=== PATIENT | female | born 1960 | race Caucasian/White ===

== ENCOUNTER 2020-05-21 13:46 | Outpatient (REF) | payer BC, SELFPAY ==
[2020-05-21 16:45] LABS: Glucose Urine UA NEG (NEG); Leukocyte Esterase Urine NEG (NEG); Nitrite Urine NEG (NEG); Urine Blood NEG (NEG); Urine Ketones NEG (NEG); Urine Protein NEG (NEG-TRACE)
[2020-05-21 16:46] LABS: Appearance Urine CLEAR; Color Urine STRAW
== END 2020-05-21 13:47 | disposition home or self-care (01) ==
LOC: HO.HMGCLDS 13:46
PROVIDERS: PCP Internal Medicine; Visit Provider Internal Medicine
DX: Z00.00 Encounter for general adult medical examination without abnormal findings (principal)
CPT/HCPCS: 81003

== ENCOUNTER 2021-07-25 10:59 | Outpatient (REF) | payer BC, SELFPAY ==
--- NOTE | ~2021-07-25 | XR_ITS ---
EXAMINATION: XR KNEE, RIGHT CLINICAL INFORMATION: Sprain of medial collateral ligament COMPARISON: None TECHNIQUE: Four views of the right knee. FINDINGS: Bones and soft tissues are normal. No fracture or joint effusion. Alignment is anatomic. Joint spaces are well maintained. No abnormal soft tissue calcification. XR/XR knee RT 3V IMPRESSION: Normal right knee.
== END 2021-07-25 11:00 | disposition home or self-care (01) ==
LOC: HO.HMGCX 10:59
PROVIDERS: Visit Provider Physician Assistant
DX: S83.411A Sprain of medial collateral ligament of right knee, initial encounter (principal); X58.XXXA Exposure to other specified factors, initial encounter; Y93.9 Activity, unspecified; Y92.9 Unspecified place or not applicable; Y99.9 Unspecified external cause status
CPT/HCPCS: 73562

== ENCOUNTER 2021-10-10 07:27 | Outpatient (REF) | payer BC, SELFPAY ==
[2021-10-10 11:26] LABS: Appearance Urine CLEAR; Color Urine YELLOW; Glucose Urine UA NEG (NEG); Leukocyte Esterase Urine TRACE (NEG); Nitrite Urine NEG (NEG); PH 6.5 (5.0-8.0); Urine Blood NEG (NEG); Urine Ketones NEG (NEG); Urine Protein NEG (NEG-TRACE)
[2021-10-10 11:30] LABS: Hemoglobin 12.8 g/dl (12.0-16.0); Mean Corpuscular HGB Conc 33.7 g/dl (31.0-35.0); Mean Corpuscular Hemoglobin 31.1 pg (27.0-33.0); Mean Corpuscular Volume 92.5 fL (80.0-98.0); PLT CLUMP 1; Red Blood Count 4.11 X10*6/uL (4.20-5.50); Red Cell Distribution Width 11.8 % (11.0-16.0)
[2021-10-10 11:54] LABS: White Blood Count 4.6 X10*3/uL (4.8-10.8)
[2021-10-10 11:55] LABS: Alanine Aminotransferase 11 U/L (0-31); Albumin Level 3.9 g/dL (3.5-5.0); Alkaline Phosphatase 68 U/L (39-117); Anion Gap 11 (12-20); Aspartate Amino Transferase 18 U/L (5-31); Bilirubin Total 0.6 mg/dL (0.0-1.0); Blood Urea Nitrogen 16 mg/dL (9-16); Calcium 9.7 mg/dL (8.4-10.2); Carbon Dioxide 28 mmol/L (22-29); Chloride 102 mmol/L (96-108); Cholesterol 199 mg/dL; Estimated Glomerular Filt Rate > 60; Glucose Fasting 80 mg/dL (60-99); HDL Cholesterol 52 mg/dL; LDL Cholesterol Calculated 128 mg/dl; Potassium 4.1 mmol/L (3.3-5.1); Sodium 137 mmol/L (135-145); Total Protein 6.8 g/dL (6.5-8.0); Triglycerides 98 mg/dL
[2021-10-10 11:56] LABS: Mucus Urine TRACE /LPF; Squamous Epithelial Cell Urine TRACE /LPF
[2021-10-10 11:57] LABS: RBC Urine 0-2 /HPF (0); Renal Epithelial Cells Urine TRACE /LPF
[2021-10-10 12:19] LABS: TSH reflex Free T4 1.36 uIU/mL (0.32-4.0)
== END 2021-10-10 07:28 | disposition home or self-care (01) ==
LOC: HO.HMGCLDS 07:27
PROVIDERS: PCP Internal Medicine; Visit Provider Internal Medicine
DX: Z00.00 Encounter for general adult medical examination without abnormal findings (principal); M81.0 Age-related osteoporosis without current pathological fracture; Z92.89 Personal history of other medical treatment
CPT/HCPCS: 36415; 80053; 80061; 81001; 82306; 84443; 85027

== ENCOUNTER 2021-11-19 11:09 | Outpatient (REF) | payer BC, SELFPAY ==
[2021-11-19 11:59] LABS: Influenza A PCR POSITIVE (Negative); Influenza B PCR NEGATIVE (Negative); Resp Syncy Virus RNA Qual PCR NEGATIVE (Negative); SARS COV2 PCR INHOUSE NEGATIVE (Negative)
== END 2021-11-19 11:10 | disposition home or self-care (01) ==
LOC: HO.LNP 11:09
PROVIDERS: Visit Provider Physician Assistant
DX: Z20.822 Contact with and (suspected) exposure to COVID-19 (principal); J06.9 Acute upper respiratory infection, unspecified
CPT/HCPCS: 0241U

== ENCOUNTER 2022-10-25 09:58 | Outpatient (REF) | payer BC, SELFPAY ==
[2022-10-25 12:47] LABS: Vitamin D 25-OH Total 26.5 ng/mL (>30)
== END 2022-10-25 09:59 | disposition home or self-care (01) ==
LOC: HO.HMGCLDS 09:58
PROVIDERS: PCP Internal Medicine; Visit Provider Internal Medicine
DX: D49.2 Neoplasm of unspecified behavior of bone, soft tissue, and skin (principal); M81.0 Age-related osteoporosis without current pathological fracture
CPT/HCPCS: 36415; 82306

== ENCOUNTER 2023-02-01 07:41 | Outpatient (REF) | payer BC, SELFPAY ==
[2023-02-01 11:48] LABS: Basophils Percent Auto 0.9 % (0-2); Eosinophils Absolute Auto 0.1 X10*3/uL (0.0-0.4); Hematocrit 38.3 % (37.0-47.0); Hemoglobin 12.6 g/dl (12.0-16.0); Imm Gran Abs Auto 0.01 X10*3/uL (0.00-0.03); Imm Gran Pct Auto 0.2 % (0.0-0.4); Lymphocytes Absolute Auto 1.5 X10*3/uL (1.2-4.9); Lymphocytes Percent Auto 32.2 % (20-40); MANUAL DIFF FLAG SCAN; Mean Corpuscular HGB Conc 32.9 g/dl (31.0-35.0); Mean Corpuscular Volume 94.1 fL (80.0-98.0); Monocytes Absolute Auto 0.4 X10*3/uL (0.1-1.2); Neutrophils Absolute Auto 2.6 x10*3/uL (2.0-8.3); Neutrophils Percent Auto 54.7 % (45-73); PLT CLUMP 1; Red Blood Count 4.07 X10*6/uL (4.20-5.50); Red Cell Distribution Width 11.8 % (11.0-16.0); SCAN SMEAR FLAG 1
[2023-02-01 12:03] LABS: White Blood Count 4.7 X10*3/uL (4.8-10.8)
[2023-02-01 12:04] LABS: SLIDE REVIEW VERIFIED
[2023-02-01 12:19] LABS: Alanine Aminotransferase 14 U/L (0-31); Alkaline Phosphatase 71 U/L (39-117); Anion Gap 12 (12-20); Aspartate Amino Transferase 20 U/L (5-31); Bilirubin Total 0.8 mg/dL (0.0-1.0); Blood Urea Nitrogen 12 mg/dL (9-16); Carbon Dioxide 26 mmol/L (22-29); Chloride 105 mmol/L (96-108); Cholesterol 184 mg/dL; Estimated Glomerular Filt Rate > 60; Glucose Fasting 84 mg/dL (60-99); HDL Cholesterol 52 mg/dL; LDL Cholesterol Calculated 116 mg/dl; Potassium 4.1 mmol/L (3.3-5.1); Sodium 139 mmol/L (135-145); Total Protein 7.2 g/dL (6.5-8.0); Triglycerides 83 mg/dL
[2023-02-01 12:24] LABS: TSH reflex Free T4 2.36 uIU/mL (0.32-4.0); Vitamin D 25-OH Total 58.5 ng/mL (>30)
[2023-02-01 12:35] LABS: Folate 14.7 ng/mL (> or = 4.0); Vitamin B12 678 pg/mL (200-900)
== END 2023-02-01 07:42 | disposition home or self-care (01) ==
LOC: HO.HMGCLDS 07:41
PROVIDERS: PCP Internal Medicine; Visit Provider Internal Medicine
DX: Z00.00 Encounter for general adult medical examination without abnormal findings (principal); M81.0 Age-related osteoporosis without current pathological fracture; Z20.2 Contact with and (suspected) exposure to infections with a predominantly sexual mode of transmission
CPT/HCPCS: 36415; 80053; 80061; 82306; 82607; 82746; 84443; 85025

== ENCOUNTER 2023-04-01 08:20 | Outpatient (AMB) | payer BC, SELFPAY ==
--- OUTSIDE RECORDS SUMMARY | 2023-04-01 08:21 | XMS_ITS | Continuity of Care Document ---
Author Name Unknown Organization [facility] Address [address] [place] [address]- Care Team Providers Care Compliance Field Technician Name Role Phone Kaykay Butcher MD Primary Care Phys[facility] [id number] Date(s): 03/15/23 - 03/22/23 [facility] [address] [place] [address]- Attending Physician: Robb CHIANG, Cydney Christensen Referring Physician: Kaykay Butcher MD Allergies, Adverse Reactions, Alerts Substance Reaction Severity Status Bactrim Rash Mild Active Medications Probiotic Formula By Mouth, Daily, 0 Refills, Maintenance, 03/15/23 10:39:00 EDT, Partial fill upon patient request if the prescription is for a schedule II opioid drug. Start Date: 03/15/23 Status: Ordered Vitamin C By Mouth, Daily, 0 Refills, Maintenance, 03/15/23 10:39:00 EDT, Partial fill upon patient request if the prescription is for a schedule II opioid drug. Start Date: 03/15/23 Status: Ordered Vitamin D3 1000 intl units oral capsule 1 capsule = 25 mcg, By Mouth, Daily, # 100 capsule, 0 Refills, Maintenance, 03/15/23 10:39:00 EDT, Capsule, Partial fill upon patient request if the prescription is for a schedule II opioid drug. Start Date: 03/15/23 Status: Ordered Vital Signs Most recent to oldest [Reference Range]: 1 Height 155.8 cm (03/15/23 10:31 AM) Weight 52.7 kg (03/15/23 10:31 AM) Body Mass Index [18.5-24.99 kg/m2] 21.71 kg/m2 (03/15/23 10:31 AM) Blood Pressure [90-138/55-84 mm Hg] 112/ 64mm Hg (03/15/23 10:31 AM) Blood pressure sites Arm, right (03/15/23 10:31 AM) Dry Weight 52.7 kg (03/15/23 10:31 AM) Weight Obtained Via Standing scale (03/15/23 10:31 AM) Dry Weight Obtained Via Standing scale (03/15/23 10:31 AM) Social History Social History Type Response Smoking Status Former smoker, quit more than 30 days ago entered on: 03/15/23 Sex Note * Robb CHIANG, Cydney F: PERFORM, SIGN, VERIFY Event Display: Patient Education/Instruction Authored Date: [id number] [facility] *[facility] Clinical Summary Name ADALBERTO RITTER Age 62 Years 1960 PCP Kaykay Butcher MD PCP Visit Date 03/15/2023 10:30:00 Additional Instructions: Shingrix vaccine advised Scheduled Appointments?? Future Appointments ?No Future Appointments Scheduled Follow-Up Instructions ?? With: Address: When: Cydney Zamudio [address] [place] [address] [address], [facility] [place] [address] [facility] ([employer] In 2 years 03/15/2025 Comments: Routine FIRST CRUSHER care. Sooner as needed. Diagnosis Encounter for gynecological examination (general) (routine) without abnormal findings; Encounter for screening for malignant neoplasm of cervix Medications: Please continue your medications until treatment is completed or stopped by your provider. Discuss any questions related to medications with your provider. Medications to Continue with No Changes These medications were not printed or sent to your pharmacy Ascorbic Acid (Vitamin C) Oral Daily. Next Dose: bifidobacterium-lactobacillus (Probiotic Formula) Oral Daily. Next Dose: Cholecalciferol (Vitamin D3 1000 intl units oral capsule) 1 capsule Oral Daily. Next Dose: Hydrochlorothiazide (hydroCHLOROthiazide 12.5 mg oral capsule) 1 capsule Oral Daily. Refills: 4. Next Dose: Allergy Info:?? Bactrim Medications Given This Visit Future Orders ?No future orders Vital Signs Height 155.8 cm Weight 52.7 kg BMI 21.71 kg/m2 Blood Pressure 112 mm Hg/64 mm Hg Temperature Pulse Rate Respiratory Rate 02 Sat Mode of Delivery / You can now view a summary of your hospital visit from the comfort of your home through a free online portal called ibeatyou. ibeatyou is a website that allows you to securely view your medical information including discharge summary, medications and follow-up visits. ??You can alsosend a secure electronic message to your doctor???s office to request appointments, renew medications or just ask a question. You can enroll at [email or web address] or register during your next office visit. Disclaimer:?? The information provided is of a general nature and is intended to be used in conjunction with the recommendations and advice of your health care practitioner. ??Every effort has been made to ensure that the information provided is accurate and complete at the time it is provided to you however, as your needs change, or, as new ??information becomes available, different or additional instructions may be required. If you have questions, please consult with your primary care provider or pharmacist, as appropriate. ??This information is not intended to serve as substitution for assessment and evaluation by a qualified health care provider. If you do not have a primary care provider, you may find a [facility] provider by calling [facility] at [phone]. For information about the plan of care including goals and instructions for your diagnosis, please see the patient education orders section of this document. Patient Education Materials?? The content of this educational material or handout may have been modified, supplemented, or adapted from its original content and format to support your individualized medical care. * Robb CHIANG, Cydney F: PERFORM, SIGN, VERIFY Event Display: Patient Education/Instruction Authored Date: [id number] [facility] *[facility] Clinical Summary Name ADALBERTO RITTER Age 62 Years 1960 PCP Kaykay Butcher MD PCP Visit Date 03/15/2023 10:30:00 Additional Instructions: Scheduled Appointments?? Future Appointments ?No Future Appointments Scheduled Follow-Up Instructions ?? With: Address: When: Cydney Zamudio [address] [facility] [address], [facility] [place] [address] Business ([employer] In 2 years 03/15/2025 Comments: Routine FIRST CRUSHER care. Sooner as needed. Diagnosis Encounter for gynecological examination (general) (routine) without abnormal findings; Encounter for screening for malignant neoplasm of cervix Medications: Please continue your medications until treatment is completed or stopped by your provider. Discuss any questions related to medications with your provider. Medications to Continue with No Changes These medications were not printed or sent to your pharmacy Ascorbic Acid (Vitamin C) Oral Daily. Next Dose: bifidobacterium-lactobacillus (Probiotic Formula) Oral Daily. Next Dose: Cholecalciferol (Vitamin D3 1000 intl units oral capsule) 1 capsule Oral Daily. Next Dose: Hydrochlorothiazide (hydroCHLOROthiazide 12.5 mg oral capsule) 1 capsule Oral Daily. Refills: 4. Next Dose: Allergy Info:?? Bactrim Medications Given This Visit Future Orders ?No future orders Vital Signs Height 155.8 cm Weight 52.7 kg BMI 21.71 kg/m2 Blood Pressure 112 mm Hg/64 mm Hg Temperature Pulse Rate Respiratory Rate 02 Sat Mode of Delivery / You can now view a summary of your hospital visit from the comfort of your home through a free online portal called ibeatyou. ibeatyou is a website that allows you to securely view your medical information including discharge summary, medications and follow-up visits. ??You can alsosend a secure electronic message to your doctor???s office to request appointments, renew medications or just ask a question. You can enroll at [email or web address] or register during your next office visit. Disclaimer:?? The information provided is of a general nature and is intended to be used in conjunction with the recommendations and advice of your health care practitioner. ??Every effort has been made to ensure that the information provided is accurate and complete at the time it is provided to you however, as your needs change, or, as new ??information becomes available, different or additional instructions may be required. If you have questions, please consult with your primary care provider or pharmacist, as appropriate. ??This information is not intended to serve as substitution for assessment and evaluation by a qualified health care provider. If you do not have a primary care provider, you may find a [facility] provider by calling [facility] at [phone]. For information about the plan of care including goals and instructions for your diagnosis, please see the patient education orders section of this document. Patient Education Materials?? The content of this educational material or handout may have been modified, supplemented, or adapted from its original content and format to support your individualized medical care. Patient Care team information Care Team Personnel Name: Kaykay Butcher MD Position: [facility] Physician - Primary Care Member Role: PCP Address: Address: [address] [place] [address]- Care Team Related Persons Name: KAREEM RITTER Address: home [facility] [place] [address]
--- OUTSIDE RECORDS SUMMARY | 2023-04-01 08:21 | XMS_ITS | Continuity of Care Document ---
Author Name Unknown Organization [facility] Address [address] [place] [address]- Care Team Providers Care Rental Agent Name Role Phone Kaykay Butcher MD [id number] Date(s): 11/04/22 - 12/04/22 [facility] [address] [place] [address]- Allergies, Adverse Reactions, Alerts No Known Allergies Medications hydroCHLOROthiazide 12.5 mg oral capsule 1 capsule = 12.5 mg, By Mouth, Daily, # 30 capsule, 4 Refills, Maintenance, 07/19/18 14:30:16 EST, Capsule Start Date: 07/19/18 Status: Ordered Patient Care team information Care Team Personnel Name: Kaykay Butcher MD Position: [facility] Physician (General Medicine) Member Role: PCP Address: Address: [address] [place] [address]- Care Team Related Persons Name: KAREEM RITTER Address: home [facility] [place] [address]
--- NOTE | 2023-04-01 09:06 | AM.OFFWIN_ITS ---
Intake Vital Signs 04/01/23 09:07 Height 5 ft 2 in Weight 115 lb BMI 21.0 BP 114/70 Blood Pressure Location Rt brachial Position Sitting Pulse 66 Pulse Source Pulse Oximeter Temp 97.5 F Temp Source Temporal Artery Scan Pulse Oximetry (%) 97 Oxygen Delivery Method Room Air Intake Visit Reasons: EP Stomach issues Intake Note: Patient here for diarrhea since last tuesday, it is not constant. no nausea, no vomiting. Shes noticed that it happens as soon as she eats and has been feeling weak lately. Patient Tobacco Use Status: Former Tobacco user Allergies Sulfa (Sulfonamide Antibiotics) Allergy (Unknown, Verified 04/01/23 09:08) rash sulfamethoxazole [From Bactrim] Allergy (Unknown, Verified 04/01/23 09:08) rash trimethoprim [From Bactrim] Allergy (Unknown, Verified 04/01/23 09:08) rash Do you need a note to return to daycare/school/sports/work: Yes HPI HPI Comments History of Present Illness Details This is a 62-year-old female who presents to the office today for sick visit. Patient complaining of persistent loose/watery diarrhea x 1.5 weeks. Patient states she started to developed watery diarrhea 1 to 4 times a day about 10 days ago. She started to developed very mild left lower quadrant abdominal pain 2-3 days ago. She denies any fevers or chills. She denies any nausea or vomiting. She has been eating a bland diet consisted of crackers, bananas, and toast. She has been drinking a lot of water. She does report feeling slightly lightheaded and weak today. She denies any recent antibiotic use. She denies any sick contacts. [facility] Medical History (Updated 10/28/22 @ 12:18 by Kakyay Butcher MD) Annual physical exam History of mammogram Hx of screening mammography Normal colonoscopy Normal Pap smear Osteoporosis Surgical History H/O colonoscopy No pertinent past surgical history Family History Father Melanoma Mother No problems noted. Brother Cancer Son Substance use disorder Daughter No problems noted. Sister No problems noted. Sister No problems noted. Sister No problems noted. Sister No problems noted. Paternal Grandfather Mental health disorder Social History Household Members Other:: , son with drug dependency Housing: House Patient Tobacco Use Status: Former Tobacco user e-Cigarette/Vaping Use: Never Used Current occupational status: employed Cognitive needs: No Hearing needs: No Vision needs: Yes Review of Systems Const All systems reviewed & are unremarkable except as noted in HPI and below Reports no additional complaints Eyes Reports no additional complaints ENT Reports no additional complaints Card Reports no additional complaints Resp Reports no additional complaints GI Reports no additional complaints Reports no additional complaints Musc Reports no additional complaints Skin/Breast Reports system reviewed and no additional complaints, except as documented Neuro Reports no additional complaints Psych Reports no additional complaints Endo Reports no additional complaints Александр/Lymph Reports no additional complaints Aller/Immun Reports no additional complaints Physical Exam Vital Signs: Last Vital Signs Temp 97.5 F 04/01/23 09:07 Pulse 66 04/01/23 09:07 BP 114/70 04/01/23 09:07 Pulse Ox 97 04/01/23 09:07 Oxygen Delivery Method Room Air 04/01/23 09:07 BMI result Body Mass Index 21.0 Const General: cooperative, healthy appearing, no acute distress and well developed Orientation/consciousness: patient oriented x3 HEENT Head: Yes normal to inspection Ears: hearing grossly normal bilaterally General nose exam: Normal external nose present Face and sinus: Yes normal facial exam Mouth: Normal oral and palatal mucosa present Eyes General: appearance normal, both eyes and all related structures Pupils: Equal, round and reactive pupils present EOM: EOMs intact bilaterally Resp Effort & Inspection: normal respiratory effort and no respiratory distress Auscultation: clear to auscultation bilaterally Cardio Rate: regular rate Rhythm: regular rhythm Heart sounds: no gallops, no murmurs and no rubs Peripheral pulses: Peripheral pulses 2+ throughout GI Inspection: No distended Palpation (GI): Soft to palpation and Tenderness to palpation present (GI) in the LLQ Auscultation: normal bowel sounds Skin General skin exam: no rashes or lesions noted Neuro General: patient oriented x3 Cranial nerves: Yes CN's II-XII intact bilaterally and Yes Equal, round and reactive pupils present Gait exam (Neuro): Normal gait present Motor exam (neuro): 5/5 motor strength present throughout Extrem General: Yes normal to inspection, Yes full ROM and Yes no clubbing, cyanosis or edema Psych Appearance: grossly normal Mental Status: mental status grossly normal Assessment & Plan Assessment & Plan (1) Acute diarrhea: Code(s): R19.7 - Diarrhea, unspecified Plan: This is a 62-year-old female presenting to the office today with persistent diarrhea times 10 days. There is concern for acute infectious diarrhea given duration of symptoms. Patient has been utilizing supportive management as an outpatient for the past 10 days without relief. Start p.o. ciprofloxacin 500 mg twice daily x5 days for treatment of presumed acute infectious diarrhea. No concern for C difficile given no recent antibiotic use. Recommended continuing symptomatic management such as a bland diet, increased hydration/electrolyte intake, and rest. Patient was also educated that there is a risk for acute diverticulitis given her left lower quadrant abdominal pain. She was informed that diverticulitis needs to be diagnosed with CT, which cannot be done at this location. Patient defers emergency room visit at this time but she was advised to follow-up with the emergency room if she has developed worsening abdominal pain, worsening diarrhea, nausea/vomiting, or fever/chills. Patient verbalizes her understanding is she is in agreement with the plan. Medications: New 2 ciprofloxacin HCl 500 mg PO BID 10 tabs 0RF Coding Level of Care Code Est Pt Level 3 (95547) Diagnoses Acute diarrhea R19.7
[2023-04-01 09:07] VITALS: BP 114/70; PULSE 66; TEMP 36.4; O2SAT 97; BMI 21.0
== END 2023-04-01 09:36 | disposition home or self-care (01) ==
PROVIDERS: PCP Internal Medicine; Visit Provider Physician Assistant Medical
DX: R19.7 Diarrhea, unspecified (principal)
CPT/HCPCS: 99213

== ENCOUNTER 2023-04-12 06:30 | Outpatient (REF) | payer BC, SELFPAY ==
[2023-04-12 12:34] LABS: CDiff Gene PCR NEGATIVE (Negative)
[2023-04-12 13:23] LABS: Adenovirus F 40/41 Not Detected (Not Detect.); Astrovirus Not Detected (Not Detect.); Campylobacter Not Detected (Not Detect.); Cryptosporidium Not Detected (Not Detect.); Cyclospora cayetanensis Not Detected (Not Detect.); E. coli EAEC Not Detected (Not Detect.); E. coli EPEC Not Detected (Not Detect.); E. coli ETEC Not Detected (Not Detect.); E. coli STEC Not Detected (Not Detect.); Entamoeba histolytica Not Detected (Not Detect.); Giardia lamblia Not Detected (Not Detect.); Norovirus GI/GII Not Detected (Not Detect.); Plesiomonas shigelloides Not Detected (Not Detect.); Rotavirus A Not Detected (Not Detect.); Salmonella Not Detected (Not Detect.); Sapovirus Not Detected (Not Detect.); Shigella sp./EIEC Not Detected (Not Detect.); Vibrio Not Detected (Not Detect.); Vibrio Cholerae Not Detected (Not Detect.); Yersinia enterocolitica Not Detected (Not Detect.)
== END 2023-04-12 06:31 | disposition home or self-care (01) ==
LOC: HO.HMGCLNP 06:30
PROVIDERS: PCP Internal Medicine; Visit Provider Nurse Practitioner Family
DX: R19.7 Diarrhea, unspecified (principal)
CPT/HCPCS: 87338; 87493; 87507

== ENCOUNTER 2023-05-18 13:45 | Outpatient (AMB) | payer BC, SELFPAY ==
[2023-05-18 13:46] VITALS: BP 116/66; PULSE 76; BMI 19.9
--- NOTE | 2023-05-18 13:46 | A.OFFVIS_ITS ---
Intake Vital Signs 05/18/23 13:46 Height 5 ft 2 in Weight 108 lb 14.534 oz BMI 19.9 BP 116/66 Blood Pressure Location Lt brachial Position Sitting Pulse 76 Intake Visit Reasons: bacterial intestinal infections Intake Note: Patient presents to in office visit today as a new patient for H pylori. CC: Patient c/o a lot of gas, bloating, feeling that she needs to go to the BR and just a little bit of loose stooll comes out. She completed a treatment for H pylori with amoxicillin, omeprazole, and clarithromycin. She also reports weight loss (10 lbs). Last colonoscopy done about a year ago and it was all normal. Allergies Sulfa (Sulfonamide Antibiotics) Allergy (Unknown, Verified 05/18/23 13:53) rash sulfamethoxazole [From Bactrim] Allergy (Unknown, Verified 05/18/23 13:53) rash trimethoprim [From Bactrim] Allergy (Unknown, Verified 05/18/23 13:53) rash Medication List - Last Reconciled 05/18/23 by Arleen Franco PA-C ascorbic acid (vitamin C) mg PO cholecalciferol (vitamin D3) 50 mcg PO DAILY HPI HPI Comments History of Present Illness Details 63-year-old female referred for colonosc opy with bacterial infection- tx cipro for 5 days-diagnosed with diverticulitis she said she did not have a CT scan-she had no abdominal imaging Sx started in March-5 days-she has abdominal pain and diarrhea Tx for HP-x 7 days Now- she has more bloating- gassy-sm stool-she is a nervous person- fatigued Saw [employer] SU[employer] STAFF- no issues Wandering abdominal pain no smoke or drink No nausea, vomiting fever triple PFSH Medical History Hx of screening mammography Annual physical exam Normal colonoscopy Normal Pap smear History of mammogram Osteoporosis Surgical History H/O colonoscopy No pertinent past surgical history Family History Father Melanoma Mother No problems noted. Brother Cancer Son Substance use disorder Daughter No problems noted. Sister No problems noted. Sister No problems noted. Sister No problems noted. Sister No problems noted. Paternal Grandfather Mental health disorder Social History Household Members Other:: , son with drug dependency Housing: House Patient Tobacco Use Status: Former Tobacco user e-Cigarette/Vaping Use: Never Used Current occupational status: employed Cognitive needs: No Hearing needs: No Vision needs: Yes Review of Systems Const All systems reviewed & are unremarkable except as noted in HPI and below Card Denies chest pain and Denies dyspnea Resp Denies dyspnea GI Reports abdominal pain and Reports bloating Physical Exam Vital Signs: Last Vital Signs Pulse 76 05/18/23 13:46 BP 116/66 05/18/23 13:46 BMI result Body Mass Index 19.9 Const General: cooperative and anxious Orientation/consciousness: patient oriented x3 Limitations: no limitations Eyes Sclerae: sclerae normal Resp Effort & Inspection: normal respiratory effort and able to speak in complete sentences Auscultation: clear to auscultation bilaterally, no rales, no rhonchi and no wheezes Cardio Rate: regular rate Rhythm: regular rhythm Heart sounds: S1 normal heart sound present and S2 normal heart sound present GI Palpation (GI): Soft to palpation and nontender Auscultation: normal bowel sounds Skin General skin exam: other (Sun tanned) Neuro General: patient oriented x3 Extrem General: Yes full ROM Psych Appearance: well kempt Speech and movement: Normal speech and movement present Affect: Anxious affect present Attitude: cooperative Thought process: Normal thought process present Thought content: Normal thought content present Assessment & Plan Assessment & Plan (1) Normal colonoscopy: Comment: 02/27 normal-the per patient report (2) H. pylori infection: Comment: txd x 7 days- Code(s): A04.8 - Other specified bacterial intestinal infections Plan: repeat HP (3) Abdominal pain: Comment: wandering- not appreciated on exam GI history is unclear Diarrhea bloating Code(s): R10.9 - Unspecified abdominal pain Plan: Will get CT (4) Weight loss: Comment: > 10 pounds since March saw DIRECT SUPPORT STAFF- Code(s): R63.4 - Abnormal weight loss Plan Update blood work CT abdomen pelvis-assess for underlying causes, to include pancreas, Orders: Orders Erythrocyte Sedimentation Rate 05/21/23 R19.7 - Diarrhea, unspecified Comprehensive Met. Panel 05/21/23 K58.9 - Irritable bowel syndrome without diarrhea Transglutaminase IgA 05/21/23 R19.7 - Diarrhea, unspecified H pylori Ag Stool 05/18/23 A04.8 - Other specified bacterial intestinal infections C Reactive Protein 05/21/23 R10.9 - Unspecified abdominal pain Complete Blood Count Auto Diff 05/21/23 K52.9 - Noninfective gastroenteritis and colitis, unspecified CT abdomen pelvis w IV con 05/18/23 R10.9 - Unspecified abdominal pain, R63.4 - Abnormal weight loss Medications: New barium sulfate 2%(w/v) (Readi-Cat 2) 450 mL PO DIRECTED 1 day 900 mL 0RF methylcellulose (laxative) (Citrucel) 500 mg PO TID 30 days 90 tabs 5RF Patient Instructions: Very thin 63-year-old female referred with weight loss-history recurrent H pylori, question diverticulitis, GI history is unclear We will update labs CT abdomen pelvis Monitor sx Will follow-up for plan of Coding Level of Care Code New Pt Level 4 (62065) Diagnoses Normal colonoscopy H. pylori infection A04.8 Abdominal pain R10.9 Weight loss R63.4 Time Spent (min) 35
== END 2023-05-18 14:33 | disposition home or self-care (01) ==
PROVIDERS: PCP Internal Medicine; Visit Provider Physician Assistant
DX: A04.8 Other specified bacterial intestinal infections (principal); R10.9 Unspecified abdominal pain; R63.4 Abnormal weight loss
CPT/HCPCS: 99204

== ENCOUNTER → 2023-05-18 13:45 | Outpatient (BNVA) | payer BC, SELFPAY | PROVIDERS: PCP Internal Medicine; Visit Provider Physician Assistant ==

== ENCOUNTER 2023-05-21 08:14 | Outpatient (REF) | payer BC, SELFPAY ==
[2023-05-21 11:24] LABS: Basophils Absolute Auto 0.1 X10*3/uL (0.0-0.2); Basophils Percent Auto 1.1 % (0-2); Hemoglobin 13.4 g/dl (12.0-16.0); Imm Gran Abs Auto 0.01 X10*3/uL (0.00-0.03); Imm Gran Pct Auto 0.2 % (0.0-0.4); MANUAL DIFF FLAG SCAN; Monocytes Percent Auto 8.2 % (2-11); PLT CLUMP 1; Red Cell Distribution Width 11.9 % (11.0-16.0); SCAN SMEAR FLAG 1
[2023-05-21 11:25] LABS: Eosinophils Absolute Auto 0.1 X10*3/uL (0.0-0.4); Eosinophils Percent Auto 3.2 % (0-4); Hematocrit 39.9 % (37.0-47.0); Lymphocytes Absolute Auto 1.5 X10*3/uL (1.2-4.9); Lymphocytes Percent Auto 34.9 % (20-40); Mean Corpuscular HGB Conc 33.6 g/dl (31.0-35.0); Mean Corpuscular Hemoglobin 31.2 pg (27.0-33.0); Mean Corpuscular Volume 92.8 fL (80.0-98.0); Monocytes Absolute Auto 0.4 X10*3/uL (0.1-1.2); Neutrophils Absolute Auto 2.3 x10*3/uL (2.0-8.3); Neutrophils Percent Auto 52.4 % (45-73)
[2023-05-21 11:27] LABS: White Blood Count 4.5 X10*3/uL (4.8-10.8)
[2023-05-21 11:49] LABS: SLIDE REVIEW VERIFIED
[2023-05-21 11:53] LABS: Alanine Aminotransferase 12 U/L (0-31); Albumin Level 4.1 g/dL (3.5-5.0); Alkaline Phosphatase 74 U/L (39-117); Anion Gap 11 (12-20); Aspartate Amino Transferase 21 U/L (5-31); Bilirubin Total 0.8 mg/dL (0.0-1.0); Blood Urea Nitrogen 12 mg/dL (9-16); C Reactive Protein < 0.04 mg/dL (< or = 0.50); Calcium 9.9 mg/dL (8.4-10.2); Carbon Dioxide 27 mmol/L (22-29); Chloride 106 mmol/L (96-108); Estimated Glomerular Filt Rate > 60; Glucose Random 79 mg/dL (60-115); Potassium 4.1 mmol/L (3.3-5.1); Sodium 140 mmol/L (135-145); Total Protein 7.4 g/dL (6.5-8.0)
[2023-05-21 12:00] LABS: Erythrocyte Sedimentation Rate 7 MM/HR (0-20)
[2023-05-23 20:13] LABS: Transglutaminase IgA <1.0 U/mL
== END 2023-05-21 08:15 | disposition home or self-care (01) ==
LOC: HO.HMGCLDS 08:14
PROVIDERS: PCP Internal Medicine; Visit Provider Physician Assistant
DX: R10.9 Unspecified abdominal pain (principal); K52.9 Noninfective gastroenteritis and colitis, unspecified
CPT/HCPCS: 36415; 80053; 85025; 85652; 86140; 86364

== ENCOUNTER 2023-05-25 05:30 | Outpatient (REF) | payer BC, SELFPAY | END 2023-05-25 05:31 | disposition home or self-care (01) | LOC: HO.HMGCLNP 05:30 | PROVIDERS: PCP Internal Medicine; Visit Provider Physician Assistant | DX: A04.8 Other specified bacterial intestinal infections (principal) | CPT/HCPCS: 87338 ==

== ENCOUNTER 2023-06-27 09:36 | Outpatient (REF) | payer BC, SELFPAY ==
--- NOTE | ~2023-06-27 | CT_ITS ---
EXAMINATION: CT ABDOMEN AND PELVIS WITH CONTRAST CLINICAL INFORMATION: Abnormal weight loss COMPARISON: None available. TECHNIQUE: Multidetector volumetric images were obtained from the superior aspect of the liver through the pubic symphysis following administration 85 mL of Omnipaque 350 intravenous contrast. Sagittal and coronal reformatted images were obtained on the technologist's workstation. Oral contrast: No This CT examination was performed using dose optimization techniques as appropriate, variously including the following: *Automated exposure control *Adjustment of mA and/or kV according to patient size (this includes techniques or standardized protocols for targeted exams where dose is matched to indication/reason for exam; i.e. extremities or head) *Use of iterative reconstruction technique DLP: 232 mGy-cm FINDINGS: LUNG BASES: Emphysematous changes of the visualized lung thorne. No pneumothorax. No large pleural effusion. LIVER, GALLBLADDER, AND BILIARY TREE: The liver is normal in size, shape, and attenuation. No focal hepatic lesion or biliary ductal dilatation is present. The gallbladder is unremarkable with no evidence of radiopaque gallstones, gallbladder wall thickening, or obvious pericholecystic inflammatory changes. PANCREAS: Unremarkable. SPLEEN: Unremarkable. ADRENAL GLANDS: Unremarkable. KIDNEYS AND URETERS: Multiple subcentimeter bilateral renal cystic foci are noted, not requiring follow-up. The kidneys are normal in size, shape, and attenuation. No hydronephrosis, hydroureter, or calculi seen. No perinephric stranding. BLADDER: Unremarkable. GASTROINTESTINAL TRACT: Fecal loading of the rectum. The small and large bowel are unremarkable. The appendix is not definitively visualized. No secondary signs of appendicitis. ABDOMINAL WALL: No significant hernia is appreciated. LYMPH NODES: Normal. VASCULAR: Abdominal aorta is nonaneurysmal.Prominence of the periuterine vasculature which may reflect elements of pelvic congestion syndrome. Correlation with symptomatology. PELVIC VISCERA: Anteverted uterus. OSSEOUS STRUCTURES: Multilevel degenerative changes of the thoracolumbar lumbosacral spine. CT/CT abdomen pelvis w IV con IMPRESSION: 1. No acute process of the abdomen or pelvis identified. 2. Edematous changes. 3. Prominence of the periuterine vasculature which may reflect elements of pelvic venous insufficiency. Correlation with symptomatology.
[2023-06-27] MEDS: iohexoL 350 MG/ML 100 ML INFUS..BTL IV (10:06)
[2023-06-27 13:09] LABS: Creatinine POC 0.5 mg/dL (0.5-1.4); GFR POC > 60
== END 2023-06-27 09:37 | disposition home or self-care (01) ==
LOC: HO.CT 09:36
PROVIDERS: Visit Provider Physician Assistant
DX: R10.9 Unspecified abdominal pain (principal); R63.4 Abnormal weight loss
CPT/HCPCS: 74177; 82565; Q9967

== ENCOUNTER 2023-07-11 14:46 | Outpatient (AMB) | payer BC, SELFPAY ==
--- NOTE | 2023-07-11 14:58 | MHC.OFFVIS ---
Intake Vital Signs 07/11/23 15:00 Height 5 ft 2 in Weight 108 lb BMI 19.8 BP 121/55 L Blood Pressure Location Lt brachial Position Sitting Pulse 71 Intake Visit Reasons: 4 week follow up Intake Note: Patient follow up for abdominal pain, lab/stool and CT scan results. Patient denies any GI issues for today. 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 Accompanied by: Self / Same As Patient Allergies Sulfa (Sulfonamide Antibiotics) Allergy (Unknown, Verified 07/11/23 14:58) rash sulfamethoxazole [From Bactrim] Allergy (Unknown, Verified 07/11/23 14:58) rash trimethoprim [From Bactrim] Allergy (Unknown, Verified 07/11/23 14:58) rash Medication List - Last Reconciled 07/11/23 by Arleen Franco PA-C ascorbic acid (vitamin C) mg PO cholecalciferol (vitamin D3) 50 mcg PO DAILY methylcellulose (laxative) (Citrucel) 500 mg PO TID 30 days HPI HPI Comments History of Present Illness Details A 63 y/o female seen in May- f/u She is feeling better- no pain- bowels just off-she admits to anxiety She had reviewed her procedure reports and pathology in the portal she had many questions that her discussed, opportunity for backup questions She overall is feeling better-however does complain of lower abdominal heaviness She associates all her discomfort with of H pylori however that has been treated test of cure is negative Appetite is okay she does not eat a lot She has had no nausea, vomiting fever or chills no hematemesis or hematochezia [facility] Medical History Hx of screening mammography Annual physical exam Normal colonoscopy Normal Pap smear History of mammogram Osteoporosis Surgical History H/O colonoscopy No pertinent past surgical history Family History Father Melanoma Mother No problems noted. Brother Cancer Son Substance use disorder Daughter No problems noted. Sister No problems noted. Sister No problems noted. Sister No problems noted. Sister No problems noted. Paternal Grandfather Mental health disorder Social History Household Members Other:: , son with drug dependency Housing: House Patient Tobacco Use Status: Former Tobacco user e-Cigarette/Vaping Use: Never Used Current occupational status: employed Cognitive needs: No Hearing needs: No Vision needs: Yes Review of Systems Const All systems reviewed & are unremarkable except as noted in HPI and below Card Denies chest pain and Denies dyspnea Resp Denies dyspnea GI Reports abdominal pain Psych Reports anxiety Physical Exam Vital Signs: Last Vital Signs Pulse 71 07/11/23 15:00 BP 121/55 L 07/11/23 15:00 BMI result Body Mass Index 19.8 Const General: cooperative and anxious Nutritional Appearance: thin Orientation/consciousness: patient oriented x3 Limitations: no limitations Eyes Sclerae: sclerae normal Resp Effort & Inspection: normal respiratory effort and able to speak in complete sentences Auscultation: clear to auscultation bilaterally, no rhonchi and no wheezes Cardio Rhythm: regular rhythm Heart sounds: S1 normal heart sound present and S2 normal heart sound present GI Palpation (GI): Soft to palpation and nontender Auscultation: normal bowel sounds Skin General skin exam: no rashes or lesions noted Neuro General: patient oriented x3 Extrem General: Yes full ROM Psych Appearance: grossly normal and well kempt Mental Status: mental status grossly normal Speech and movement: Clear speech present Affect: Anxious affect present Thought content: Normal thought content present Results Reviewed Results Reviewed: Reviewed labs- from May- no anemia, normal enzymes HP- negative CT/CT abdomen pelvis w IV con IMPRESSION: 1. No acute process of the abdomen or pelvis identified. 2. Edematous changes. 3. Prominence of the periuterine vasculature which may reflect elements of pelvic venous insufficiency. Correlation with symptomatology. Assessment & Plan Assessment & Plan (1) Abdominal pain: Comment: wandering- may have a functional component GI history is unclear Sx mostly improved No pain Code(s): R10.9 - Unspecified abdominal pain Plan: Continue to monitor See back follow-up for progress Trial dicyclomine 10 mg (2) H. pylori infection: Comment: negative Code(s): A04.8 - Other specified bacterial intestinal infections Plan CT to T- [phone] may LMOM Medications: New dicyclomine 10 mg PO TID 90 caps 0RF Patient Instructions: Please CT result was sent to PCP Will review with MD Monitor symptoms Coding Level of Care Code Est Pt Level 4 (09109) Diagnoses Abdominal pain R10.9 H. pylori infection A04.8 Time Spent (min) 35
[2023-07-11 15:00] VITALS: BP 121/55; PULSE 71; BMI 19.8
== END 2023-07-11 15:37 | disposition home or self-care (01) ==
PROVIDERS: PCP Internal Medicine; Visit Provider Physician Assistant
DX: R10.9 Unspecified abdominal pain (principal); A04.8 Other specified bacterial intestinal infections
CPT/HCPCS: 99214

== ENCOUNTER → 2023-07-11 14:46 | Outpatient (BNVA) | payer BC, SELFPAY | PROVIDERS: PCP Internal Medicine; Visit Provider Physician Assistant ==

== ENCOUNTER 2023-11-01 11:17 | Outpatient (AMB) | payer BC, SELFPAY ==
[2023-11-01 11:53] VITALS: BP 110/60; PULSE 69; O2SAT 99; BMI 20.6
--- NOTE | 2023-11-01 11:53 | A.OFFPC_ITS ---
Vital Signs 11/01/23 11:53 Height 5 ft 2 in Weight 112 lb 8 oz BMI 20.6 BP 110/60 Blood Pressure Location Rt brachial Position Sitting Pulse 69 Pulse Source Pulse Oximeter Pulse Oximetry (%) 99 Oxygen Delivery Method Room Air Intake Visit Reasons: Annual PE Intake Note: Pt is here for her Annual PE Allergies Sulfa (Sulfonamide Antibiotics) Allergy (Unknown, Verified 11/01/23 11:54) rash sulfamethoxazole [From Bactrim] Allergy (Unknown, Verified 11/01/23 11:54) rash trimethoprim [From Bactrim] Allergy (Unknown, Verified 11/01/23 11:54) rash Medication List - Last Reconciled 11/01/23 by Kaykay Butcher MD ascorbic acid (vitamin C) mg PO cholecalciferol (vitamin D3) 50 mcg PO DAILY Tobacco use date assessed: 11/01/23 Dental Screening Dental Screen Date: 11/01/23 Did you have a dental visit in the last 12 months?: Yes Did you have a dental problem in the last 6 months where you did not have access to dental care?: No Was dental information given to patient?: Patient has dentist HPI Annual PE HPI Details Pt presents for PE. PFSH Medical History Hx of screening mammography Annual physical exam Normal colonoscopy Normal Pap smear History of mammogram Osteoporosis Surgical History H/O colonoscopy No pertinent past surgical history Family History Father Melanoma Mother No problems noted. Brother Cancer Son Substance use disorder Daughter No problems noted. Sister No problems noted. Sister No problems noted. Sister No problems noted. Sister No problems noted. Paternal Grandfather Mental health disorder Social History Household Members Other:: , son with drug dependency Housing: House Patient Tobacco Use Status: Former Tobacco user e-Cigarette/Vaping Use: Never Used Current occupational status: employed Cognitive needs: No Hearing needs: No Vision needs: Yes Questionnaire PHQ-9 Over the last 2 weeks, how often have you been bothered by any of the following problems? 1. Little interest or pleasure in doing things: not at all 2. Feeling down, depressed, or hopeless: not at all 3. Trouble falling or staying asleep, or sleeping too much: not at all 4. Feeling tired or having little energy: several days 5. Poor appetite or overeating: not at all 6. Feeling bad about yourself - or that you are a failure or have let yourself or your family down: not at all 7. Trouble concentrating on things, such as reading the newspaper or watching television: several days 8. Moving or speaking so slowly that other people could have noticed. Or the opposite - being so fidgety or restless that you have been moving around a lot more than usual: not at all 9. Thoughts that you would be better off or of hurting yourself in some way: not at all Total score: 2 Depression Screening Interpretation: Negative Depression Screening Done: Yes [id number] - PHQ-9 Billing: Patient declined-do not bill Source: Developed by Drs. Hoang Brock, Ana Lilia Miner, Faraz Perez and colleagues, with an educational rhina from [employer]. Thrive Questionnaire Date Thrive assessed: 11/01/23 I am a: Patient What is your living situation today?: I have a steady place to live Within the past 12 months, did the food you bought not last and you didn't have the money to get more?: Never true Within the past 12 months, did you worry whether your food would run out before you got money to buy more?: Never true Do you have trouble paying for medicines?: No Do you have trouble getting transportation to medical appointments?: No Do you have trouble paying your heating and electricity bill?: No Do you have trouble taking care of your child, family member or friend?: No Do you have trouble with day-to-day activities such as bathing, preparing meals, shopping, managing finances, etc.?: No Are you currently unemployed and looking for a job?: No Are you interested in more education?: No THRIVE Score: 0 AUDIT C Alcohol Use Questionnaire (AUDIT-C) 1. How often do you have a drink containing alcohol?: Monthly or less 3. How often do you have six or more drinks on one occasion?: Never Total Score: 1 ELIA-7 AMB Questionnaire ELIA-7 Date ELIA - 7 assessed: 11/01/23 Feeling nervous, anxious, or on edge: 2 = More than half the days Not being able to stop or control worryin = Several days Worrying too much about different things: 1 = Several days Trouble relaxin = Several days Being so restless that it is hard to sit still: 1 = Several days Becoming easily annoyed or irritable: 1 = Several days Feeling afraid as if something awful might happen: 0 = Not at all Total ELIA-7 score (0-4 normal; 5-9 mild; 10-14 moderate; 15-21 severe): 7 Source: Developed by Drs. Hoang Brock, Ana Lilia Miner, Faraz Perez and colleagues, with an educational rhina from [employer]. Review of Systems Const All systems reviewed & are unremarkable except as noted in HPI and below Reports no additional complaints Eyes Reports no additional complaints ENT Reports no additional complaints Card Reports no additional complaints Resp Reports no additional complaints GI Reports no additional complaints Reports no additional complaints Physical exam (Primary Care) Vital Signs: Last Vital Signs Pulse 69 11/01/23 11:53 BP 110/60 11/01/23 11:53 Pulse Ox 99 11/01/23 11:53 Oxygen Delivery Method Room Air 11/01/23 11:53 BMI result Body Mass Index 20.6 Tobacco/Smoking Status: Tobacco use Status Tobacco use date assessed 11/01/23 11/01/23 11:57 Patient Tobacco Use Status Former Tobacco user 11/01/23 11:57 e-Cigarette/Vaping Use Never Used 11/01/23 11:57 PHQ-9: PHQ-9 Score PHQ-9: Total score 2 11/01/23 12:39 Depression Screening Interpretation: Negative Thrive Assessment: Date of Thrive Assessment Date Thrive assessed 11/01/23 11/01/23 12:00 Const General: no acute distress HENMT Head: Yes normal to inspection Ears: hearing grossly normal bilaterally Eyes General: appearance normal, both eyes and all related structures Neck Neck: Yes no lymphadenopathy and Yes supple Resp Effort & Inspection: normal respiratory effort Auscultation: clear to auscultation bilaterally Cardio Rhythm: regular rhythm Heart sounds: S1 normal heart sound present and S2 normal heart sound present GI Inspection: Yes normal to inspection Palpation (GI): Soft to palpation Percussion: Yes normal to percussion Auscultation: normal bowel sounds Assessment and Plan Assessment & Plan (1) Osteoporosis: Comment: f/u Vicky. Dr Kelle Walls DEXA in October 2017, took Alendronate in the past but declined taking it 04/29, DEXA 12/27 T -score -3.8 (vertebral) Code(s): M81.0 - Age-related osteoporosis without current pathological fracture Plan: Patient was declining treatment for osteoporosis in the past. She agrees to have a repeat DEXA. Weight-bearing exercises and vitamin-D supplement discussed with the patient (2) Annual physical exam: Code(s): Z00.00 - Encounter for general adult medical examination without abnormal findings Plan: Well-balanced diet regular physical activity discussed with the patient. 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 Panel Fast Today M81.0 - Age-related osteoporosis without current pathological fracture, Z00.00 - Encounter for general adult medical examination without abnormal findings Vitamin D 25-OH Total Today M81.0 - Age-related osteoporosis without current pathological fracture, Z00.00 - Encounter for general adult medical examination without abnormal findings Lipid Panel Today M81.0 - Age-related osteoporosis without current pathological fracture, Z00.00 - Encounter for general adult medical examination without abnormal findings Complete Blood Count Auto Diff Today M81.0 - Age-related osteoporosis without current pathological fracture, Z00.00 - Encounter for general adult medical examination without abnormal findings TSH reflex Free T4 Today M81.0 - Age-related osteoporosis without current pathological fracture, Z00.00 - Encounter for general adult medical examination without abnormal findings Vitamin B12 and Folate Today M81.0 - Age-related osteoporosis without current pathological fracture, Z00.00 - Encounter for general adult medical examination without abnormal findings UA w Microscopic Today M81.0 - Age-related osteoporosis without current path ological fracture, Z00.00 - Encounter for general adult medical examination without abnormal findings XR DEXA axial skeleton Today M81.0 - Age-related osteoporosis without current pathological fracture, Z00.00 - Encounter for general adult medical examination without abnormal findings Coding Level of Care Code Est Pt Prev Care 40-64y(50669) Diagnoses Osteoporosis M81.0 Annual physical exam Z00.00 Normal Pap smear Z12.4
== END 2023-11-01 15:24 | disposition home or self-care (01) ==
PROVIDERS: Visit Provider Internal Medicine
DX: M81.0 Age-related osteoporosis without current pathological fracture (principal); Z00.00 Encounter for general adult medical examination without abnormal findings; Z12.4 Encounter for screening for malignant neoplasm of cervix
CPT/HCPCS: 99396

== ENCOUNTER 2023-11-22 07:57 | Outpatient (REF) | payer BC, SELFPAY ==
[2023-11-22 10:18] LABS: Appearance Urine Clear; Color Urine Yellow; Glucose Urine UA Negative (Negative); Leukocyte Esterase Urine Small (1+) (Negative); Nitrite Urine Negative (Negative); UMIC TRIGGER UA YES; Urine Blood Negative (Negative); Urine Ketones Negative (Negative); Urine Protein Negative (Neg-Trace)
[2023-11-22 10:30] LABS: Bacteria Urine None Seen (None Seen); Hyaline Casts Urine 0-2 /LPF (0-2); RBC Urine 0-2 /HPF (0-2); Squamous Epithelial Cell Urine 0-2 /HPF (0-2); WBC Urine 0-5 /HPF (0-5)
[2023-11-22 10:38] LABS: Basophils Absolute Auto 0.1 X10*3/uL (0.0-0.2); Basophils Percent Auto 1.3 % (0-2); Eosinophils Absolute Auto 0.2 X10*3/uL (0.0-0.4); Eosinophils Percent Auto 4.2 % (0-4); Hematocrit 39.1 % (37.0-47.0); Hemoglobin 13.3 g/dl (12.0-16.0); Imm Gran Abs Auto 0.01 X10*3/uL (0.00-0.03); Imm Gran Pct Auto 0.2 % (0.0-0.4); Lymphocytes Absolute Auto 1.7 X10*3/uL (1.2-4.9); MANUAL DIFF FLAG SCAN; Mean Corpuscular Hemoglobin 32.1 pg (27.0-33.0); Mean Corpuscular Volume 94.4 fL (80.0-98.0); Monocytes Absolute Auto 0.4 X10*3/uL (0.1-1.2); Monocytes Percent Auto 8.8 % (2-11); Neutrophils Absolute Auto 2.2 x10*3/uL (2.0-8.3); Neutrophils Percent Auto 48.5 % (45-73); PLT CLUMP 1; Red Blood Count 4.14 X10*6/uL (4.20-5.50); SCAN SMEAR FLAG 1
[2023-11-22 10:57] LABS: Alanine Aminotransferase 13 U/L (0-31); Alkaline Phosphatase 67 U/L (39-117); Anion Gap 10 (12-20); Aspartate Amino Transferase 19 U/L (5-31); Bilirubin Total 0.7 mg/dL (0.0-1.0); Blood Urea Nitrogen 16 mg/dL (9-16); Calcium 9.7 mg/dL (8.4-10.2); Carbon Dioxide 28 mmol/L (22-29); Chloride 105 mmol/L (96-108); Cholesterol 193 mg/dL (<200); Estimated Glomerular Filt Rate > 60; Glucose Fasting 79 mg/dL (60-99); HDL Cholesterol 55 mg/dL (>40); LDL Cholesterol Calculated 107 mg/dL (<100); Potassium 3.9 mmol/L (3.3-5.1); Sodium 139 mmol/L (135-145); Total Protein 7.1 g/dL (6.5-8.0); Triglycerides 157 mg/dL (<150)
[2023-11-22 11:23] LABS: TSH reflex Free T4 1.65 uIU/mL (0.32-4.0); Vitamin D 25-OH Total 45.2 ng/mL (>30)
[2023-11-22 11:30] LABS: White Blood Count 4.6 X10*3/uL (4.8-10.8)
[2023-11-22 11:38] LABS: Folate 8.2 ng/mL (> or = 4.0); Vitamin B12 588 pg/mL (200-900)
[2023-11-22 13:21] LABS: SLIDE REVIEW VERIFIED
== END 2023-11-22 07:58 | disposition home or self-care (01) ==
LOC: HO.HMGCLDS 07:57
PROVIDERS: PCP Internal Medicine; Visit Provider Internal Medicine
DX: Z00.00 Encounter for general adult medical examination without abnormal findings (principal); Z13.6 Encounter for screening for cardiovascular disorders; M81.0 Age-related osteoporosis without current pathological fracture
CPT/HCPCS: 36415; 80053; 80061; 81001; 82306; 82607; 82746; 84443; 85025

== ENCOUNTER 2023-12-06 10:30 | Outpatient (REF) | payer BC, SELFPAY ==
--- NOTE | ~2023-12-06 | MM_ITS ---
EXAMINATION: BONE DENSITOMETRY CLINICAL INDICATION: Age-related osteoporosis without current pathological fracture. COMPARISON: This is the patient's baseline examination. TECHNIQUE: Using a [employer] DXA System (software version: 13.1) manufactured by [employer], dual-energy x-ray absorptiometry was performed of the lumbar spine and left hip. The images are of good technical quality. Summary results are attached. FINDINGS: LEFT FEMUR, NECK: BMD 0.678 g/cm2, Z-score -0.9, T-score -2.6, osteoporosis. LEFT FEMUR, TOTAL: BMD 0.723 g/cm2, Z-score -0.8, T-score -2.3, osteopenia. AP SPINE L1-L4: BMD 0.744 g/cm2, Z-score -1.7, T-score -3.6, osteoporosis. IDENTIFIED RISK FACTORS: Menopause. HISTORY OF FRACTURE: None listed. MEDICATIONS: Vitamin D. MM/XR DEXA axial skeleton IMPRESSION: 1. DIAGNOSIS: Osteoporosis based on the lowest T-score value of -3.6 in the lumbar spine applying World Health Organization criteria. 2. 10-YEAR FRACTURE RISK PREDICTION, FRAX: According to the guidelines, FRAX calculation should only be performed on patients in the osteopenia bone density category. Therefore, FRAX was not performed on this patient. 3. Treatment Recommendations: NOF guidelines recommend consideration for treatment in postmenopausal women and men age 50 and older presenting with the following: -A hip or vertebral (clinical or morphometric) fracture. -T-score less than or equal to -2.5 at the femoral neck or spine after appropriate evaluation to exclude secondary causes. -Low bone mass at the hip or spine and a 10-year fracture probability by FRAX of greater than or equal to 3% for hip fracture or greater than or equal to 20% for major osteoporotic fracture based on the [place] adapted WHO algorithm. 4. Other Recommendations: All treatment decisions require clinical judgment and consideration of individual patient factors, including patient preferences, comorbidities, previous drug use, risk factors not captured in the FRAX model (e.g. frailty, falls, vitamin D deficiency, increased bone turnover, interval significant decline in bone density) and possible under or overestimation of fracture risk by FRAX. Additional medical evaluation for secondary cause of low bone mineral density may be appropriate. FUTURE SCAN RECOMMENDATION: People with diagnosed cases of osteoporosis or at high risk for fracture should have regular bone mineral density tests. For patients eligible for Medicare, routine testing is allowed once every 2 years. The testing frequency can be increased to one year for patients who have rapidly progressing disease, those who are receiving or discontinuing medical therapy to restore bone mass, or have additional risk factors.
== END 2023-12-06 10:31 | disposition home or self-care (01) ==
LOC: HO.MAMMO 10:30
PROVIDERS: PCP Internal Medicine; Visit Provider Internal Medicine
DX: Z13.820 Encounter for screening for osteoporosis (principal); M81.0 Age-related osteoporosis without current pathological fracture; Z78.0 Asymptomatic menopausal state
CPT/HCPCS: 77080

== ENCOUNTER 2024-04-30 08:00 | Outpatient (AMB) | payer BC, SELFPAY ==
--- NOTE | 2024-04-30 08:00 | AM.OFFWIN_ITS ---
Intake Vital Signs 04/30/24 08:01 Height 5 ft 2 in Weight 110 lb BMI 20.1 BP 120/80 Blood Pressure Location Lt brachial Position Sitting Pulse 70 Pulse Source Pulse Oximeter Pulse Oximetry (%) 98 Oxygen Delivery Method Room Air Intake Visit Reasons: EP ? fracture ribs/shingles Intake Note: Patient here because she fell in her tub last week and hit under her left breast and has been having a lot of pain. Patient Tobacco Use Status: Former Tobacco user Allergies Sulfa (Sulfonamide Antibiotics) Allergy (Unknown, Verified 04/30/24 08:09) rash sulfamethoxazole [From Bactrim] Allergy (Unknown, Verified 04/30/24 08:09) rash trimethoprim [From Bactrim] Allergy (Unknown, Verified 04/30/24 08:09) rash Do you need a note to return to daycare/school/sports/work: Yes HPI EP ? fracture ribs/shingles HPI Details This note is constructed using voice recognition software. While every effort has been made to ensure accuracy, crm campaign manager errors may have been included. The patient is a 63 year old female who presents to the clinic today with left- sided rib pain after a fall one-week ago striking the side of the tub. She denies shortness of breath, cough, or any other difficulty with respiration. She reports that she is able to take falling complete breaths. She does report tenderness in the area, that is worse if she twists turns or takes a deep breath. She has not tried anything to make it better. She was also concerned that she could have shingles as she woke up this morning with some scratch maurer to her left hip, there were no vesicles, no pain, she just wanted to make sure that there was nothing wrong. FORMERLY [facility], [facility] Medical History Hx of screening mammography Annual physical exam Normal colonoscopy Normal Pap smear History of mammogram Osteoporosis Surgical History H/O colonoscopy No pertinent past surgical history Family History Father Melanoma Mother No problems noted. Brother Cancer Son Substance use disorder Daughter No problems noted. Sister No problems noted. Sister No problems noted. Sister No problems noted. Sister No problems noted. Paternal Grandfather Mental health disorder Social History Household Members Other:: , son with drug dependency Housing: House Patient Tobacco Use Status: Former Tobacco user e-Cigarette/Vaping Use: Never Used Current occupational status: employed Cognitive needs: No Hearing needs: No Vision needs: Yes Review of Systems Const All systems reviewed & are unremarkable except as noted in HPI and below Physical Exam Vital Signs: Last Vital Signs Pulse 70 04/30/24 08:01 BP 120/80 04/30/24 08:01 Pulse Ox 98 04/30/24 08:01 Oxygen Delivery Method Room Air 04/30/24 08:01 BMI result Body Mass Index 20.1 Const General: cooperative, healthy appearing, comfortable, no acute distress and alert Orientation/consciousness: patient oriented x3 Limitations: no limitations Neck Neck: Yes normal visual inspection, Yes full ROM and Yes no lymphadenopathy Resp Effort & Inspection: normal respiratory effort and able to speak in complete sentences Auscultation: clear to auscultation bilaterally Cardio Jugular venous distension: no JVD Palpation: normal PMI Rate: regular rate Heart sounds: S1 normal heart sound present, S2 normal heart sound present, no click, no gallops, no murmurs and no rubs Skin Other: Maurer of excoriation to left hip. General skin exam: no rashes or lesions noted, elasticity normal and turgor normal Neuro General: patient oriented x3 Extrem General: Yes normal to inspection, Yes full ROM, Yes capillary refill normal and Yes normal exam except as noted Psych Appearance: grossly normal Mental Status: mental status grossly normal Speech and movement: Normal speech and movement present Affect: normal affect Assessment & Plan Assessment & Plan (1) Rib pain on left side: Code(s): R07.81 - Pleurodynia Plan: Reassuring physical examination, advised patient to continue with deep breathing exercises to help reduce risk of pneumonia. X-ray ordered to evaluate for fracture. Advised NSAIDs for pain management, as well as trial of topical lidocaine if needed, which may be purchased in the [id number] strength. Advised follow up with worsening or failure to resolve, especially if she should develop any dyspnea at rest. X-rays to be reviewed when available. Plan See above for full details and plan. Orders: Orders XR ribs LT 2V Today R07.81 - Pleurodynia Coding Level of Care Code Est Pt Level 4 (79284) Diagnoses Rib pain on left side R07.81
[2024-04-30 08:01] VITALS: BP 120/80; PULSE 70; O2SAT 98; BMI 20.1
--- OUTSIDE RECORDS SUMMARY | 2024-04-30 08:01 | XMS_ITS | Continuity of Care Document ---
Author Organization [facility] Address [address] [address]- Care Team Providers Care Sales Operations Manager Name Role Phone Kaykay Butcher MD Primary Care Physician [facility] [id number] Date(s): 03/15/23 - 04/14/23 [facility] [address], [place] [address] Attending Physician: Dick Garcia Admitting Physician: Admtr, Dick Referring Physician: Admtr, ArOlayinka Allergies, Adverse Reactions, Alerts Substance Reaction Severity [...] opioid drug. 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
== END 2024-04-30 08:32 | disposition home or self-care (01) ==
PROVIDERS: PCP Internal Medicine; Visit Provider Registered Nurse
DX: R07.81 Pleurodynia (principal)

== ENCOUNTER → 2024-04-30 08:00 | Outpatient (BNVA) | payer BC, SELFPAY | PROVIDERS: PCP Internal Medicine | DX: R07.81 Pleurodynia (principal) ==

== ENCOUNTER 2024-04-30 08:26 | Outpatient (REF) | payer BC, SELFPAY ==
--- NOTE | ~2024-04-30 | XR_ITS ---
EXAMINATION: XR RIBS, LEFT CLINICAL INFORMATION: Pleural kidney COMPARISON: None available. TECHNIQUE: A single view of the chest and 3 views of the left ribs were obtained. FINDINGS: Lungs are clear. No consolidation, pneumothorax, or pleural effusion. The cardiomediastinal silhouette and pulmonary vasculature are normal. Osseous structures are unremarkable. Ribs are intact. No fractures are identified. XR/XR ribs LT min 3V w CXR1V IMPRESSION: Unremarkable examination. Electronically signed by: Oscar Austin MD 04/30/2024 09:32 AM EDT
== END 2024-04-30 08:27 | disposition home or self-care (01) ==
LOC: HO.HMGCX 08:26
PROVIDERS: PCP Internal Medicine; Visit Provider Internal Medicine
DX: R07.81 Pleurodynia (principal)
CPT/HCPCS: 71101

== ENCOUNTER 2025-02-28 10:04 | Outpatient (AMB) | payer BC, SELFPAY ==
[2025-02-28 10:24] VITALS: BP 120/68; PULSE 71; TEMP 36.7; O2SAT 98; BMI 20.1
--- NOTE | 2025-02-28 10:24 | A.OFFPC_ITS ---
Vital Signs 02/28/25 10:24 Height 5 ft 2 in Weight 110 lb BMI 20.1 BP 120/68 Blood Pressure Location Lt brachial Position Sitting Pulse 71 Pulse Source Pulse Oximeter Temp 98.0 F Temp Source Oral Pulse Oximetry (%) 98 Oxygen Delivery Method Room Air Intake Visit Reasons: Annual PE Intake Note: Pt is here today for PE. Allergies Sulfa (Sulfonamide Antibiotics) Allergy (Unknown, Verified 02/28/25 10:24) rash sulfamethoxazole (From Bactrim) Allergy (Unknown, Verified 02/28/25 10:24) rash trimethoprim (From Bactrim) Allergy (Unknown, Verified 02/28/25 10:24) rash Medication List - Last Reconciled 02/28/25 by Kaykay Butcher MD ascorbic acid (vitamin C) mg PO cholecalciferol (vitamin D3) 50 mcg PO DAILY Tobacco use date assessed: 02/28/25 Dental Screening Dental Screen Date: 02/28/25 Did you have a dental visit in the last 12 months?: Yes Did you have a dental problem in the last 6 months where you did not have access to dental care?: No Was dental information given to patient?: Patient has dentist HPI Annual PE HPI Details Pt presents for PE. [facility] Medical History (Updated 02/28/25 @ 11:27 by Kaykay Butcher MD) Hx of screening mammography Annual physical exam Normal colonoscopy Normal Pap smear History of mammogram Osteoporosis Surgical History H/O colonoscopy No pertinent past surgical history Family History Father Melanoma Mother No problems noted. Brother Cancer Son Substance use disorder Daughter No problems noted. Sister No problems noted. Sister No problems noted. Sister No problems noted. Sister No problems noted. Paternal Grandfather Mental health disorder Social History Household Members Other:: , son with drug dependency Housing: House Patient Tobacco Use Status: Former Tobacco user e-Cigarette/Vaping Use: Never Used service: No Current occupational status: employed Cognitive needs: No Hearing needs: No Vision needs: Yes Questionnaire PHQ-9 Over the last 2 weeks, how often have you been bothered by any of the following problems? 1. Little interest or pleasure in doing things: not at all 2. Feeling down, depressed, or hopeless: not at all 3. Trouble falling or staying asleep, or sleeping too much: not at all 4. Feeling tired or having little energy: several days 5. Poor appetite or overeating: not at all 6. Feeling bad about yourself - or that you are a failure or have let yourself or your family down: not at all 7. Trouble concentrating on things, such as reading the newspaper or watching television: several days 8. Moving or speaking so slowly that other people could have noticed. Or the opposite - being so fidgety or restless that you have been moving around a lot more than usual: not at all 9. Thoughts that you would be better off or of hurting yourself in some way: not at all Total score: 2 Depression Screening Interpretation: Negative Depression Screening Done: Yes 69277 - PHQ-9 Billing: Yes Source: Developed by Drs. Hoang Brock, Ana Lilia Miner, Faraz Perez and colleagues, with an educational rhina from [employer]. Thrive Questionnaire Date Thrive assessed: 02/28/25 I am a: Patient What is your living situation today?: I have a steady place to live Within the past 12 months, did the food you bought not last and you didn't have the money to get more?: Never true Within the past 12 months, did you worry whether your food would run out before you got money to buy more?: Never true Do you have trouble paying for medicines?: No Do you have trouble getting transportation to medical appointments?: No Do you have trouble paying your heating and electricity bill?: No Do you have trouble taking care of your child, family member or friend?: No Do you have trouble with day-to-day activities such as bathing, preparing meals, shopping, managing finances, etc.?: No Are you currently unemployed and looking for a job?: No Are you interested in more education?: No Please select the resources that you would like help with: None Currently or been in a relationship where the following occur: No concerns reported THRIVE Score: 0 AUDIT C Alcohol Use Questionnaire (AUDIT-C) 1. How often do you have a drink containing alcohol?: Monthly or less 2. How many drinks containing alcohol do you have on a typical day when you are drinking?: 1 or 2 3. How often do you have six or more drinks on one occasion?: Never Total Score: 1 ELIA-7 AMB Questionnaire ELIA-7 Date ELIA - 7 assessed: 02/28/25 Feeling nervous, anxious, or on edge: 1 = Several days Not being able to stop or control worryin = Several days Worrying too much about different things: 1 = Several days Trouble relaxin = Several days Being so restless that it is hard to sit still: 1 = Several days Becoming easily annoyed or irritable: 0 = Not at all Feeling afraid as if something awful might happen: 0 = Not at all Total ELIA-7 score (0-4 normal; 5-9 mild; 10-14 moderate; 15-21 severe): 5 Source: Developed by Drs. Hoang Brock, Ana Lilia Miner, Faraz Perez and colleagues, with an educational rhina from [employer]. ELIA-7 Assessment Billing ELIA-7 Assessment Tool: ELIA-7 Assessment 38477 Review of Systems Const All systems reviewed & are unremarkable except as noted in HPI and below Eyes Reports no additional complaints ENT Reports no additional complaints Card Reports no additional complaints Resp Reports no additional complaints GI Reports no additional complaints Reports no additional complaints Physical exam (Primary Care) Vital Signs: Last Vital Signs Temp 98.0 F 02/28/25 10:24 Pulse 71 02/28/25 10:24 BP 120/68 02/28/25 10:24 Pulse Ox 98 02/28/25 10:24 Oxygen Delivery Method Room Air 02/28/25 10:24 BMI result Body Mass Index 20.1 Tobacco/Smoking Status: Tobacco use Status Tobacco use date assessed 02/28/25 02/28/25 10:31 Patient Tobacco Use Status Former Tobacco user 02/28/25 10:31 e-Cigarette/Vaping Use Never Used 02/28/25 10:31 PHQ-9: PHQ-9 Score PHQ-9: Total score 2 02/28/25 10:31 Depression Screening Interpretation: Negative Thrive Assessment: Date of Thrive Assessment Date Thrive assessed 02/28/25 02/28/25 10:31 Currently or been in a relationship where the following occur: No concerns reported Const General: no acute distress HENMT Head: Yes normal to inspection Ears: hearing grossly normal bilaterally General nose exam: Normal external nose present Coding Level of Care Code Est Pt Prev Care 40-64y(51792) Diagnoses Osteoporosis M81.0 Normal colonoscopy Annual physical exam Z00.00 Additional Codes ELIA-7 Assessment Billing - ELIA-7 Assessment Tool: ELIA-7 Assessment 50151 ([id number]) PHQ-9 - 68084 - PHQ-9 Billing: Yes ([id number]) Assessment & Plan Assessment & Plan (1) Osteoporosis: Comment: f/u Endo. Dr Kelle Walls DEXA in October 2017, took Alendronate in the past but declined taking it 04/29, DEXA 12/27 T -score -3.8 (vertebral), patient declined taking medications 02/28/2025 Code(s): M81.0 - Age-related osteoporosis without current pathological fracture Category: Medical Plan: Continue vitamin-D supplement weightbearing exercise discussed with the patient. She declined treatment (2) Normal colonoscopy: Comment: 2011, 02/27 normal-the per patient report Category: Medical Plan: Up-to-date with colonoscopy (3) Annual physical exam: Code(s): Z00.00 - Encounter for general adult medical examination without abnormal findings Category: Medical Plan: Well-balanced diet regular physical activity discussed with the patient. 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 Panel Fast 1 Year M81.0 - Age-related osteoporosis without current pathological fracture, Z00.00 - Encounter for general adult medical examination without abnormal findings TSH reflex Free T4 1 Year M81.0 - Age-related osteoporosis without current pathological fracture, Z00.00 - Encounter for general adult medical examination without abnormal findings Comprehensive [place]. Panel Fast Today E55.9 - Vitamin D deficiency, unspecified, M81.0 - Age-related osteoporosis without current pathological fracture, Z00.00 - Encounter for general adult medical examination without abnormal findings Complete Blood Count Auto Diff Today E55.9 - Vitamin D deficiency, unspecified, M81.0 - Age-related osteoporosis without current pathological fracture, Z00.00 - Encounter for general adult medical examination without abnormal findings Lipid Panel Today E55.9 - Vitamin D deficiency, unspecified, M81.0 - Age- related osteoporosis without current pathological fracture, Z00.00 - Encounter for general adult medical examination without abnormal findings Vitamin D 25-OH Total Today E55.9 - Vitamin D deficiency, unspecified, M81.0 - Age-related osteoporosis without current pathological fracture, Z00.00 - Encounter for general adult medical examination without abnormal findings UA w Microscopic Today E55.9 - Vitamin D deficiency, unspecified, M81.0 - Age- related osteoporosis without current pathological fracture, Z00.00 - Encounter for general adult medical examination without abnormal findings Lipid Panel 1 Year M81.0 - Age-related osteoporosis without current pathological fracture, Z00.00 - Encounter for general adult medical examination without abnormal findings Complete Blood Count Auto Diff 1 Year M81.0 - Age-related osteoporosis without current pathological fracture, Z00.00 - Encounter for general adult medical examination without abnormal findings
--- OUTSIDE RECORDS SUMMARY | 2025-02-28 10:53 | XMS_ITS | Clinical Summary ---
Author Organization [facility] Address [address] [facility] [facility] [address] [place] [id number] Phone Care Team Providers Care Spring Tier Name Role Phone Kaykay Butcher MD Primary Care Provider Allergies No known active allergies Medications cholecalciferol (VITAMIN D3) 1,000 unit tablet Take 1,000 Units by mouth daily. Active ascorbic acid, vitamin C, (VITAMIN C) 250 MG tablet Take 250 mg by mouth daily. Active Active Problems No known active problems Immunizations Immunization Administration Dates Next Due COVID-19 (Pre-05/30) Pfizer Vaccine, mRNA, PF ,09/22/2020 Tdap 06/13/2015 Family History Medical History Relation Comments Testicular cancer Brother Melanoma Father Cardiovascular disease Mother Hypertension Mother Drug use disorder Son Relation Status Comments Brother Father Mother Son Alive Social History Tobacco Use Types Packs/Day Years Used Date Smoking Tobacco: Former Smokeless Tobacco: Never Alcohol Use Standard Drinks/Week Comments Yes 1 (1 standard drink = 0.6 oz pur e alcohol) month Education Answer Date Recorded Are you interested in more education? Not on norman e 12/03/2022 Are you concerned about learning? Not on file 12/03/2022 No 12/03/2022 No 12/03/2022 Digital Access Answer Date Recorded No 01/01/2023 No 01/01/2023 Reliable internet access at home? Not on file 01/01/2023 Device with a working camera? 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 on file Not on file Not on file Last Filed Vital Signs Vital Sign Reading Time Taken Comments Blood Pressure 100/62 04/14/2021 10:36 AM EDT Pulse - - Temperature - - Respiratory Rate - - Oxygen Saturation - - Inhaled Oxygen Concentration - - Weight 52.2 kg (115 lb) 04/14/2021 10:36 AM EDT Height 158.1 cm (5' 2.24 ) 04/14/2021 10:36 AM E DT Body Mass Index 20.87 04/14/2021 10:36 AM EDT Plan of Treatment Health Maintenance Due Date Last Done Comments LIPID PANEL 1961 DEPRESSION SCREENING 1973 SMOKING Hx and SMOKELESS TOBACCO SCREENING 1974 HEPATITIS C SCREENING 1979 HIV ONE-TIME SCREENING (18-6 5 YEARS) 1979 MAMMOGRAM 2001 COLOGUARD 2006 COLONOSCOPY 2006 COLORECTAL CANCER SCREENING 2006 FIT TEST 2006 FOBT 2006 SIGMOIDOSCOPY 2006 VIRTUAL COLONOSCOPY 2006 PNEUMOCOCCAL VACCINES (50+ years) (1 of 1 - PCV) 2011 ZOSTER VACCINES (1 of 2) 2011 PAP SMEAR 01/26/2022 01/26/2019, 01/26/2019 COVID-19 VACCINE (3 - 2023-2 5 season) 2024 10/13/2020, 09/22/2020 Adult Td,Tdap Booster 06/13/2025 06/13/2015 RSV VACCINE (1 - 1-dose 75+ series) 2036 HEPATITIS A VACCINES Aged Out No long er eligible based on patient's age to complete this topic HIB VACCINES Aged Out No longer eligi ble based on patient's age to complete this topic MENINGOCOCCAL VACCINES (ACWY) Aged Out No longer eligible based on patient's age to complete this topic MENINGOCOCCAL VACCINES (B) Aged Out N o longer eligible based on patient's age to complete this topic Medical Devices Not on file Procedures Procedure Name Priority Date/Time Associated Diagnosis Comments PAP TEST Routine 01/26/2019 12:00 AM EDT from Last 3 Months or Most Recently Relevant to Health Maintenance Results * Pap Smear (01/26/2019 12:00 AM EDT) 01/26/2019 01/26/2019 4:5 0 PM EDT Narrative SEE NARRATIVE - 02/01/2019 3:22 [place] [address] Blood Bank Technician: Viridiana Muller MD 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 PAP SMEAR (SUREPATH) CE: SPECIMEN ADEQUACY: Satisfactory for evaluation; transformation zone present. INTERPRETATION: NEGATIVE FOR INTRAEPITHELIAL LESION OR MALIGNANCY. Electronically Signed Out By: ORLANDO Chaudhari(ASC) The Pap test is a screening test primarily for squamous cancers and precursors and has associated false-negative and false-positive results. New technologies such as liquid-based preparations may decrease but will not eliminate all false-negative results. Regular sampling and follow-up of unexplained clinical signs and symptoms are recommended to minimize false negative results. PROCEDURES/ADDENDA HPV Testing (Requested) Ordered Date: 01/29/2019 A. PAP SMEAR (SUREPATH) CE: HPV Test Negative for high-risk human papillomavirus types 16, 18, 45 and the Other high risk probe set (Includes 31, 33, 35, 39, 51, 52, 56, 58, 59, 66, 68) by [employer] Onclarity HR-HPV analysis. Clinical correlation is advised. This HPV test was performed at [facility], [address] [place] [address]. This test has been FDA approved for SurePath cervical cytology specimens. The accuracy and precision of this test for all other specimen sources has been verified in the Cytopathology Laboratory of the [facility] and has not been cleared or approved by the U.S. Food and Drug Administration. Clinical correlation is advised. CLINICAL HISTORY Date of Last Menstrual Period: Not Provided Menstrual History: Unknown Other Clinical Conditions: Screening Pap SPECIMEN SOURCE A: PAP SMEAR (SUREPATH) CE Patient Name: KAYCEE AGUILAR : 1960 (Age: 58) Sex: F Institution: [facility] Location: [facility] Date of Collection: 01/26/2019 Date of Reported: 02/01/2019 15:22 Results to: Cydney Zamudio MD Cydney Zamudio MD CYTOLOGY ORDERABLES Final Result SEE NARRATIVE from Last 3 Months or Most Recently Relevant to Health Maintenance Insurance PPO EPO PPO EPO PPO EPO PPO EPO PPO EPO PPO EPO PPO EPO Care Teams Spring Tier Relationship Specialty Start Date End Date Kaykay Butcher MD [address] [place] [id number] PCP - General Internal Medicine 10/18/18 Additional Source Comments The information contained in this document represents components of the legal health record. It is not the complete legal health record.[facility]
== END 2025-02-28 11:29 | disposition home or self-care (01) ==
LOC: HO.HMCC 10:05
PROVIDERS: PCP Internal Medicine; Visit Provider Internal Medicine
DX: M81.0 Age-related osteoporosis without current pathological fracture (principal); Z00.00 Encounter for general adult medical examination without abnormal findings

== ENCOUNTER → 2025-02-28 10:04 | Outpatient (BNVA) | payer BC, SELFPAY | PROVIDERS: PCP Internal Medicine; Visit Provider Internal Medicine | DX: Z00.00 Encounter for general adult medical examination without abnormal findings (principal); M81.0 Age-related osteoporosis without current pathological fracture; Z13.31 Encounter for screening for depression; Z13.39 Encounter for screening examination for other mental health and behavioral disorders | CPT/HCPCS: 96127 ==

== ENCOUNTER 2025-03-12 08:44 | Outpatient (REF) | payer BC, SELFPAY ==
--- OUTSIDE RECORDS SUMMARY | 2025-03-12 08:56 | XMS_ITS | Clinical Summary ---
Author Organization [facility] Address [address] [facility] [address] [place] [phone] Phone Care Team Providers Care Melon Packer Name Role Phone Kaykay Butcher MD Primary Care Provider [phone] Allergies No known active allergies Medications cholecalciferol [...] SEE NARRATIVE - 02/01/2019 3:22 [place] [address] Candy Dipper: iVridiana Muller MD MANAGER TARGET Cytology Report FINAL DIAGNOSIS A. PAP SMEAR (SUREPATH) CE: SPECIMEN ADEQUACY: Satisfactory for evaluation; transformation zone present. INTERPRETATION: NEGATIVE FOR INTRAEPITHELIAL LESION OR MALIGNANCY. Electronically Signed Out By: ORLANDO Chaudahri(ASC) The Pap test is a screening test [...] 52, 56, 58, 59, 66, 68) by [employer] Onclarity HR-HPV analysis. Clinical correlation is advised. This HPV test was performed at [facility], [address] [place] [address]. This test has been FDA approved for SurePath cervical cytology specimens. The accuracy and precision of this test for all other specimen sources has been verified in the Cytopathology Laboratory of the [facility] and has not been cleared or approved by the U.S. Food and Drug Administration. Clinical correlation is advised. CLINICAL HISTORY Date of Last Menstrual Period: Not Provided Menstrual History: Unknown Other Clinical Conditions: Screening Pap SPECIMEN SOURCE A: PAP SMEAR (SUREPATH) CE Patient Name: KAYCEE AGUILAR : 1960 (Age: 58) Sex: F Institution: [facility] Location: [facility] Date of Collection: 01/26/2019 Date of Reported: 02/01/2019 15:22 Results to: Cydney Zamudio MD Cydney Zamudio MD CYTOLOGY ORDERABLES Final Result SEE NARRATIVE from Last 3 Months or Most Recently Relevant to Health Maintenance Insurance PPO EPO PPO EPO PPO EPO PPO EPO PPO EPO PPO EPO PPO EPO Care Teams Melon Packer Relationship Specialty Start Date End Date Kaykay Butcher MD [address] [place] [address] PCP - General Internal Medicine 10/18/18 Additional Source Comments The information contained in this document represents components of the legal health record. It is not the complete legal health record.[facility]
[2025-03-12 10:17] LABS: Hematocrit 38.1 % (37.0-47.0); Hemoglobin 12.9 g/dl (12.0-16.0); Imm Gran Abs Auto 0.01 X10*3/uL (0.00-0.03); Imm Gran Pct Auto 0.2 % (0.0-0.4); Lymphocytes Absolute Auto 1.5 X10*3/uL (1.2-4.9); MANUAL DIFF FLAG SCAN; Mean Corpuscular HGB Conc 33.9 g/dl (31.0-35.0); Mean Corpuscular Hemoglobin 31.8 pg (27.0-33.0); Mean Corpuscular Volume 93.8 fL (80.0-98.0); NRBC Abs Auto 0.000 X10*3/uL (0.0-0.012); NRBC Pct Auto 0.0 /100WBC (0.0-0.2); PLT CLUMP 1; Red Blood Count 4.06 X10*6/uL (4.20-5.50); SCAN SMEAR FLAG 1
[2025-03-12 10:27] LABS: Appearance Urine Clear; Glucose Urine UA Negative (Negative); PH 6.0 (5.0-9.0); Specific Gravity - Urine 1.010 (1.005-1.025); UMIC TRIGGER UA YES
[2025-03-12 10:36] LABS: White Blood Count 6.5 X10*3/uL (4.8-10.8)
[2025-03-12 10:58] LABS: Alanine Aminotransferase 21 U/L (0-31); Albumin Level 4.2 g/dL (3.5-5.0); Alkaline Phosphatase 82 U/L (39-117); Anion Gap 9 (12-20); Aspartate Amino Transferase 27 U/L (5-31); Blood Urea Nitrogen 12 mg/dL (9-16); Calcium 9.4 mg/dL (8.4-10.2); Carbon Dioxide 29 mmol/L (22-29); Chloride 106 mmol/L (96-108); Cholesterol 204 mg/dL (<200); Estimated Glomerular Filt Rate > 60; HDL Cholesterol 57 mg/dL (>40); Potassium 3.9 mmol/L (3.3-5.1); Sodium 140 mmol/L (135-145); Total Protein 7.2 g/dL (6.5-8.0); Triglycerides 115 mg/dL (<150)
== END 2025-03-12 08:45 | disposition home or self-care (01) ==
LOC: HO.HMGCLDS 08:44
PROVIDERS: PCP Internal Medicine; Visit Provider Internal Medicine
DX: Z00.00 Encounter for general adult medical examination without abnormal findings (principal); M81.0 Age-related osteoporosis without current pathological fracture; E55.9 Vitamin D deficiency, unspecified
CPT/HCPCS: 36415; 80053; 80061; 81001; 82306; 84443; 85025